=== PATIENT | female | born 2000 | race Caucasian/White ===

== ENCOUNTER → 2023-10-06 08:45 | Outpatient (REF) | payer BC, SELFPAY ==
[2023-10-06 10:07] LABS: % Basophils 0.7 % (0-2); % Eosinophils 2.8 % (0-6); % Immature Granulocytes 0.2 % (0-0.5); % Lymphocytes 42.9 % (20.5-51.1); % Monocytes 5.3 % (1.7-9.3); % Neutrophils 48.1 % (42.2-75.2); Absolute Basophils 0.1 10^3/uL (0-0.2); Absolute Eosinophils 0.3 10^3/uL (0-0.7); Absolute Lymphocytes 3.9 10^3/uL (1.2-3.4); Absolute Monocytes 0.5 10^3/uL (0.1-0.6); Absolute Neutrophils 4.4 10^3/uL (1.4-6.5); Hematocrit 40.2 % (37.0-47.0); Hemoglobin 13.9 g/dL (12.0-16.0); Mean Corp Hgb Conc. 34.6 g/dL (33.0-37.0); Mean Platelet Volume 9.5 fL (7.4-10.4); Nucleated Red Blood Cells % 0 %; Platelet Count 456 10^3/uL (130-400); Red Blood Cell Count 4.96 10^6/uL (4.20-5.40); Red Cell Dist. Width 12.2 % (11.5-14.5); White Blood Cell Count 9.2 10^3/uL (4.8-10.8)
[2023-10-06 10:26] LABS: Glycohemoglobin (HgbA1c) 5.4 % (4.0-5.6)
[2023-10-06 10:46] LABS: ALT (SGPT) 40 U/L (0-35); AST (SGOT) 31 U/L (14-36); Albumin 4.7 g/dl (3.5-5.0); Alkaline Phosphatase 45 U/L (38-126); Blood Urea Nitrogen 8 mg/dl (7-17); Calcium 10.2 mg/dl (8.4-10.2); Carbon Dioxide 23 mmol/L (22-30); Chloride 105 mmol/L (98-107); Glucose 88 mg/dl (70-99); HDL Cholesterol 58 mg/dl; LDL Cholesterol, Calculated 61 mg/dl; Potassium 4.9 mmol/L (3.5-5.1); Sodium 139 mmol/L (135-145); Total Bilirubin 0.4 mg/dl (0.2-1.3); Total Cholesterol 149 mg/dl (50-199); Total Protein 7.1 g/dl (6.3-8.2); Triglyceride 151 mg/dl (10-149); Very Low Density Lipoprotein 30 mg/dl (0-30); eGFR > 60.00
[2023-10-06 11:10] LABS: Vitamin D, 25-OH*** 42.1 ng/mL (30-80)
[2023-10-06 11:23] LABS: TSH Reflex To Free T4 2.51 uIU/ml (0.47-4.68)
[2023-10-06 11:41] LABS: Erythrocyte Sed Rate 10 mm/hour (0-20)
== END ==
LOC: REG 08:45
PROVIDERS: ATTENDING PHYSICIAN Registered Nurse Ambulatory Care
DX: L50.9 Urticaria, unspecified (principal); E66.1 Drug-induced obesity; Z68.41 Body mass index [BMI] 40.0-44.9, adult; F32.0 Major depressive disorder, single episode, mild; E55.9 Vitamin D deficiency, unspecified; E53.8 Deficiency of other specified B group vitamins; E66.01 Morbid (severe) obesity due to excess calories; F41.1 Generalized anxiety disorder; E28.2 Polycystic ovarian syndrome
CPT/HCPCS: 36415; 80053; 80061; 82306; 83036; 84443; 85025; 85652; 86140

== ENCOUNTER → 2023-10-12 08:02 | Outpatient (REF) | payer BC, SELFPAY ==
[2023-10-12 09:04] LABS: % Basophils 0.6 % (0-2); % Eosinophils 2.7 % (0-6); % Immature Granulocytes 0.3 % (0-0.5); % Lymphocytes 52.4 % (20.5-51.1); % Monocytes 5.4 % (1.7-9.3); % Neutrophils 38.6 % (42.2-75.2); Absolute Basophils 0.1 10^3/uL (0-0.2); Absolute Eosinophils 0.3 10^3/uL (0-0.7); Absolute Lymphocytes 4.9 10^3/uL (1.2-3.4); Absolute Monocytes 0.5 10^3/uL (0.1-0.6); Absolute Neutrophils 3.6 10^3/uL (1.4-6.5); Hematocrit 40.9 % (37.0-47.0); Hemoglobin 13.8 g/dL (12.0-16.0); Mean Corp Hgb Conc. 33.7 g/dL (33.0-37.0); Mean Corpuscular Hgb 28.4 pg (27.0-31.0); Mean Corpuscular Volume 84.2 fL (81.0-99.0); Mean Platelet Volume 9.4 fL (7.4-10.4); Nucleated Red Blood Cells % 0 %; Platelet Count 435 10^3/uL (130-400); Red Blood Cell Count 4.86 10^6/uL (4.20-5.40); Red Cell Dist. Width 12.2 % (11.5-14.5); White Blood Cell Count 9.3 10^3/uL (4.8-10.8)
== END ==
LOC: REG 08:02
PROVIDERS: ATTENDING PHYSICIAN Registered Nurse Ambulatory Care; FAMILY PHYSICIAN Internal Medicine
DX: D75.839 Thrombocytosis, unspecified (principal)
CPT/HCPCS: 36415; 85025

== ENCOUNTER → 2023-11-29 12:25 | Outpatient (REF) | payer BC, SELFPAY ==
[2023-11-29 12:56] LABS: % Basophils 0.6 % (0-2); % Eosinophils 1.5 % (0-6); % Immature Granulocytes 0.2 % (0-0.5); % Lymphocytes 33.5 % (20.5-51.1); % Monocytes 4.8 % (1.7-9.3); % Neutrophils 59.4 % (42.2-75.2); Absolute Basophils 0.1 10^3/uL (0-0.2); Absolute Eosinophils 0.2 10^3/uL (0-0.7); Absolute Lymphocytes 3.5 10^3/uL (1.2-3.4); Absolute Monocytes 0.5 10^3/uL (0.1-0.6); Absolute Neutrophils 6.3 10^3/uL (1.4-6.5); Hematocrit 40.4 % (37.0-47.0); Hemoglobin 13.9 g/dL (12.0-16.0); Mean Corp Hgb Conc. 34.4 g/dL (33.0-37.0); Mean Corpuscular Hgb 28.7 pg (27.0-31.0); Mean Corpuscular Volume 83.5 fL (81.0-99.0); Mean Platelet Volume 9.1 fL (7.4-10.4); Nucleated Red Blood Cells % 0 %; Platelet Count 444 10^3/uL (130-400); Red Blood Cell Count 4.84 10^6/uL (4.20-5.40); Red Cell Dist. Width 12.1 % (11.5-14.5); White Blood Cell Count 10.6 10^3/uL (4.8-10.8)
[2023-11-29 13:11] LABS: ALT (SGPT) 20 U/L (0-35); AST (SGOT) 21 U/L (14-36); Albumin 4.6 g/dl (3.5-5.0); Alkaline Phosphatase 43 U/L (38-126); Blood Urea Nitrogen 8 mg/dl (7-17); Calcium 10.1 mg/dl (8.4-10.2); Carbon Dioxide 24 mmol/L (22-30); Chloride 104 mmol/L (98-107); Glucose 86 mg/dl (70-99); Potassium 4.7 mmol/L (3.5-5.1); Sodium 137 mmol/L (135-145); Total Bilirubin 0.6 mg/dl (0.2-1.3); Total Protein 6.9 g/dl (6.3-8.2); eGFR > 60.00
== END ==
LOC: REG 12:25
PROVIDERS: ATTENDING PHYSICIAN Internal Medicine
DX: R10.11 Right upper quadrant pain (principal); R11.2 Nausea with vomiting, unspecified
CPT/HCPCS: 36415; 80053; 85025

== ENCOUNTER → 2023-11-30 09:41 | Outpatient (REF) | payer BC, SELFPAY | LOC: RAD 09:41 | PROVIDERS: ATTENDING PHYSICIAN Internal Medicine | DX: R10.11 Right upper quadrant pain (principal); R11.2 Nausea with vomiting, unspecified | CPT/HCPCS: 76700; 87086 ==

== ENCOUNTER → 2024-01-02 13:11 | Outpatient (REF) | payer BC, SELFPAY ==
[2024-01-02 13:52] LABS: % Basophils 0.6 % (0-2); % Eosinophils 2.7 % (0-6); % Immature Granulocytes 0.2 % (0-0.5); % Lymphocytes 45.9 % (20.5-51.1); % Monocytes 4.9 % (1.7-9.3); % Neutrophils 45.7 % (42.2-75.2); Absolute Basophils 0.1 10^3/uL (0-0.2); Absolute Eosinophils 0.2 10^3/uL (0-0.7); Absolute Lymphocytes 4.1 10^3/uL (1.2-3.4); Absolute Monocytes 0.4 10^3/uL (0.1-0.6); Absolute Neutrophils 4.1 10^3/uL (1.4-6.5); Hematocrit 38.5 % (37.0-47.0); Hemoglobin 13.3 g/dL (12.0-16.0); Mean Corp Hgb Conc. 34.5 g/dL (33.0-37.0); Mean Corpuscular Hgb 27.7 pg (27.0-31.0); Mean Corpuscular Volume 80.2 fL (81.0-99.0); Mean Platelet Volume 9.2 fL (7.4-10.4); Nucleated Red Blood Cells % 0 %; Platelet Count 405 10^3/uL (130-400)
[2024-01-02 13:57] LABS: Erythrocyte Sed Rate 12 mm/hour (0-20)
[2024-01-02 14:25] LABS: ALT (SGPT) 36 U/L (0-35); AST (SGOT) 30 U/L (14-36); Albumin 4.7 g/dl (3.5-5.0); Alkaline Phosphatase 44 U/L (38-126); Blood Urea Nitrogen 6 mg/dl (7-17); Carbon Dioxide 22 mmol/L (22-30); Chloride 105 mmol/L (98-107); Glucose 86 mg/dl (70-99); Potassium 4.4 mmol/L (3.5-5.1); Sodium 143 mmol/L (135-145); Total Bilirubin 0.4 mg/dl (0.2-1.3); Total Protein 7.1 g/dl (6.3-8.2); eGFR > 60.00
[2024-01-02 15:02] LABS: TSH Reflex To Free T4 2.05 uIU/ml (0.47-4.68)
[2024-01-02 16:22] LABS: Complement C3 154 mg/dl (88-165); IgA 96 mg/dl (70-400)
[2024-01-04 11:30] LABS: tTG IgA Antibody 3.1 EU/ml (0-19); tTG IgG Antibody 7.1 EU/ml (0-19)
[2024-01-05 01:08] LABS: Complement Act., Total (CH50) 62.5 U/mL (38.7-89.9)
== END ==
LOC: REG 13:11
PROVIDERS: ATTENDING PHYSICIAN Internal Medicine; FAMILY PHYSICIAN Internal Medicine
DX: L50.1 Idiopathic urticaria (principal); L50.0 Allergic urticaria; R10.9 Unspecified abdominal pain; T78.1XXA Other adverse food reactions, not elsewhere classified, initial encounter
CPT/HCPCS: 36415; 80053; 82784; 83516; 84443; 85025; 85652; 86003; 86140; 86160; 86162; 86231

== ENCOUNTER → 2024-02-17 14:57 | Outpatient (REF) | payer BC, SELFPAY | LOC: CPAP 14:57 | PROVIDERS: ATTENDING PHYSICIAN Nurse Practitioner Adult Health | DX: Z01.419 Encounter for gynecological examination (general) (routine) without abnormal findings (principal) | CPT/HCPCS: G0123 ==

== ENCOUNTER → 2024-03-02 12:05 | Outpatient (REF) | payer BC, SELFPAY ==
[2024-03-05 08:30] LABS: ANA, IgG Reflex to HEp-2 None Detected (None Detected)
== END ==
LOC: REG 12:05
PROVIDERS: ATTENDING PHYSICIAN Physician Assistant Medical; FAMILY PHYSICIAN Internal Medicine
DX: L50.1 Idiopathic urticaria (principal); L50.8 Other urticaria; L50.9 Urticaria, unspecified; L29.9 Pruritus, unspecified
CPT/HCPCS: 36415; 83516; 83521; 84155; 84156; 84165; 86038; 86335

== ENCOUNTER → 2024-04-26 11:38 | Outpatient (REF) | payer BC, SELFPAY ==
[2024-04-26 12:35] LABS: % Basophils 0.9 % (0-2); % Eosinophils 2.3 % (0-6); % Immature Granulocytes 0.3 % (0-0.5); % Lymphocytes 46.8 % (20.5-51.1); % Monocytes 4.8 % (1.7-9.3); % Neutrophils 44.9 % (42.2-75.2); Absolute Basophils 0.1 10^3/uL (0-0.2); Absolute Eosinophils 0.2 10^3/uL (0-0.7); Absolute Lymphocytes 3.7 10^3/uL (1.2-3.4); Absolute Monocytes 0.4 10^3/uL (0.1-0.6); Absolute Neutrophils 3.6 10^3/uL (1.4-6.5); Hematocrit 40.9 % (37.0-47.0); Hemoglobin 13.5 g/dL (12.0-16.0); Mean Corpuscular Hgb 27.6 pg (27.0-31.0); Mean Corpuscular Volume 83.6 fL (81.0-99.0); Mean Platelet Volume 9.2 fL (7.4-10.4); Nucleated Red Blood Cells % 0 %; Platelet Count 392 10^3/uL (130-400); Red Blood Cell Count 4.89 10^6/uL (4.20-5.40); White Blood Cell Count 7.9 10^3/uL (4.8-10.8)
[2024-04-26 14:26] LABS: ALT (SGPT) 12 U/L (0-35); AST (SGOT) 18 U/L (14-36); Albumin 4.5 g/dl (3.5-5.0); Alkaline Phosphatase 42 U/L (38-126); Blood Urea Nitrogen 11 mg/dl (7-17); Carbon Dioxide 24 mmol/L (22-30); Chloride 103 mmol/L (98-107); Glucose 89 mg/dl (70-99); Potassium 4.8 mmol/L (3.5-5.1); Sodium 138 mmol/L (135-145); TSH Reflex To Free T4 2.12 uIU/ml (0.47-4.68); Total Bilirubin 0.5 mg/dl (0.2-1.3); Total Protein 6.9 g/dl (6.3-8.2); eGFR > 60.00
== END ==
LOC: REG 11:38
PROVIDERS: ATTENDING PHYSICIAN Internal Medicine
DX: E66.01 Morbid (severe) obesity due to excess calories (principal); Z68.38 Body mass index [BMI] 38.0-38.9, adult; E66.812 Obesity, class 2; F41.1 Generalized anxiety disorder; E28.2 Polycystic ovarian syndrome; R79.89 Other specified abnormal findings of blood chemistry
CPT/HCPCS: 36415; 80053; 83036; 84443; 85025

== ENCOUNTER → 2024-08-20 11:15 | Outpatient (REF) | payer BC, SELFPAY ==
[2024-08-20 13:34] LABS: % Basophils 0.6 % (0-2); % Eosinophils 2.8 % (0-6); % Immature Granulocytes 0.2 % (0-0.5); % Lymphocytes 42.1 % (20.5-51.1); % Monocytes 3.7 % (1.7-9.3); % Neutrophils 50.6 % (42.2-75.2); Absolute Basophils 0.1 10^3/uL (0-0.2); Absolute Eosinophils 0.2 10^3/uL (0-0.7); Absolute Lymphocytes 3.4 10^3/uL (1.2-3.4); Absolute Monocytes 0.3 10^3/uL (0.1-0.6); Absolute Neutrophils 4.1 10^3/uL (1.4-6.5); Hematocrit 39.2 % (37.0-47.0); Hemoglobin 13.2 g/dL (12.0-16.0); Mean Corp Hgb Conc. 33.7 g/dL (33.0-37.0); Mean Corpuscular Volume 83.1 fL (81.0-99.0); Mean Platelet Volume 9.8 fL (7.4-10.4); Nucleated Red Blood Cells % 0 %; Platelet Count 395 10^3/uL (130-400); Red Blood Cell Count 4.72 10^6/uL (4.20-5.40); White Blood Cell Count 8.2 10^3/uL (4.8-10.8)
[2024-08-20 14:52] LABS: Free T4 1.42 ng/dl (0.78-2.19); Vitamin D, 25-OH*** 31.6 ng/mL (30-80)
[2024-08-20 15:05] LABS: TSH 1.38 uIU/ml (0.47-4.68)
[2024-08-20 15:20] LABS: Iron 73 ug/dl (37-170)
[2024-08-20 15:29] LABS: Percent Saturation 19 % (20-50); Total Iron Binding Capacity 369 ug/dl (265-497)
[2024-08-20 15:41] LABS: Folate 9.4 ng/ml (2.76-20); Vitamin B12 206 pg/ml (239-931)
[2024-08-23 03:57] LABS: DHEA Sulfate 549 ug/dL (148-407)
[2024-08-23 04:18] LABS: Vitamin D 1,25 Dihydroxy 41.5 pg/mL (19.9-79.3)
[2024-08-23 06:32] LABS: Zinc 87.6 ug/dL (60.0-120.0)
== END ==
LOC: REG 11:15
PROVIDERS: ATTENDING PHYSICIAN Physician Assistant Medical; FAMILY PHYSICIAN Internal Medicine
DX: L65.0 Telogen effluvium (principal)
CPT/HCPCS: 36415; 82157; 82306; 82607; 82627; 82652; 82728; 82746; 83540; 83550; 84270; 84402; 84403; 84439; 84443; 84630; 85025; 86038

== ENCOUNTER 2025-02-10 09:18 | Emergency (ER) | payer BC, SELFPAY ==
[2025-02-10 09:32] VITALS: BP 119/75
--- NOTE | 2025-02-10 10:53 | ED.GENMED ---
History of Present Illness
General
Chief Complaint: Abdominal Pain
Source: patient
Exam Limitations: none
Time Seen by Provider: 02/10/25 10:33
Nursing documentation reviewed up to this point in time: agreed with
History of Present Illness
History of Present Illness:
Patient is a 24-year-old female with history of PCOS who presents to the emergency department for evaluation of left-sided abdominal pain associated with vomiting. She states symptoms started Tuesday morning with pain in her left mid/upper abdomen.
She describes occasional radiation of pain into her pelvis (both the right and left side). Vomiting began on Tuesday night and she describes intermittent episodes over the past few days. She has had little oral intake.
She denies any fever, dysuria, diarrhea, or constipation. She started her menstrual cycle yesterday.
Patient does report a past history of kidney stones however this pain feels different.
No known sick contacts.
Past History
Past History
ED Past Medical History: Other (Kidney stone)
ED Past Surgical History: None
Social History
Tobacco: Non-smoker
Alcohol: None
Drug: None
Personal: Single
Living: with family
Employment: Employed
Review of Systems
Review of Systems
Allergies reviewed?: Yes
All Other Systems: ROS reviewed and negative except as documented in HPI and ROS
Phy Exam
Physical Exam
Physical Exam:
Vitals: Mildly tachycardic on arrival, improved by my assessment. Afebrile
General: Patient appears in no distress
Skin: Warm and dry, no rashes or lesions
Head: Normocephalic, atraumatic
Eyes: Sclera nonicteric. E
Throat: Protecting airway
Neck: Normal ROM, no cervical spine tenderness, no meningismus
Cardiac: Regular rate and rhythm, no murmurs.
Pulm: Normal respiratory effort. Lungs clear
Abdomen: Abdomen soft. Moderate tenderness in right mid abdomen. No rebound tenderness or guarding. Mild tenderness in lower pelvic region.
Extremities: No evidence of cyanosis or edema
Neuro: AAOx3. Grossly intact.
Psychiatric: Normal affect.
Course
Orders/Labs/Results
Orders:
Orders
02/10/25
US Pelvis Only (non-obstetric) Urgent
Reason For Exam: pelvic pain, vomiting
02/10/25 10:51
0.9% Sodium Chloride 1000 ml [Nss] 1,000 ml IV BOLUS
Ketorolac [Toradol] 15 mg IV NOW STA
Ondansetron Injectable [Zofran] 4 mg IV NOW STA
Test Result ONCE
Renal Only US [US Renal Only W/O Bladder] Urgent
Comment: hx kidney stones
Reason For Exam: Left sided abdominal pain
02/10/25 11:32
Complete Blood Count/With Diff Urgent
Comprehensive Metabolic Panel Urgent
HCG, Serum Qualitative Screen Urgent
Lipase Urgent
Urinalysis Reflex To Culture Urgent
Date Specimen was Collected: 02/10/25
Time Specimen was Collected: 11:01
Urine Microscopic Reflex Cult Urgent
Urine Culture Urgent
TOMMIE Source: U
Specimen Description:
Date Specimen was Collected: 02/10/25
Time Specimen was Collected: 11:01
02/10/25 13:37
CT Abd/pelvis W Iv Cont Urgent
Comment:
Reason For Exam: left sided abdominal pain, +N/V
02/10/25 15:15
Amoxicillin 875 mg/Clav 125 mg [Augmentin 875 mg/125 mg] 1 tablet PO NOW STA
Abnormal Lab Results
02/10/25
11:32
WBC 15.4 H 10^3/uL
(4.8-10.8)
Absolute Neuts (auto) 11.3 H 10^3/uL
(1.4-6.5)
Absolute Monos (auto) 0.9 H 10^3/uL
(0.1-0.6)
Lymphocytes % 20.1 L %
(20.5-51.1)
BUN 6 L mg/dl
(7-17)
Creatinine 0.5 L mg/dL
(0.6-1.0)
Alkaline Phosphatase 35 L U/L
(38-126)
Urine Ketones 3+ A
(Negative)
Ur Occult Blood Reflex 4+ A
(Negative)
Leukocyte Esterase Rfl 1+ A
(Negative)
Urine RBC >100 A /HPF
(0-2)
Urine Albumin (Reflex) 2+ A
(Neg - Trace)
02/10/25 11:32
02/10/25 11:32
Vital Signs
Initial and Last Documented VS:
Initial Vital Signs
Temp Pulse Resp BP Pulse Ox
98.5 F 111 18 119/75 99
02/10/25 09:32 02/10/25 09:32 02/10/25 09:32 02/10/25 09:32 02/10/25 09:32
Last Documented Vital Signs
Temp Pulse Resp BP Pulse Ox
97.9 F 78 16 112/74 97
02/10/25 15:50 02/10/25 15:50 02/10/25 15:50 02/10/25 15:50 02/10/25 15:50
MDM/Problems Addressed
Differential Diagnosis Includes:
Not limited to: viral gastroenteritis, colitis, constipation, cystitis, pyelonephritis, renal colic, ovarian cyst, etc
MDM/Problems Addressed:
24-year-old female with two days of left sided abdominal pain associated with nausea and vomiting. No fevers or urinary symptoms. She is currently on her menstrual cycle. Patient was somewhat tachycardic on arrival however this improved prior to my
assessment. She is afebrile and appears well. Abdomen is soft with tenderness in left mid/left upper abdomen. No rebound tenderness or guarding. She also has some mild discomfort in the pelvic region bilaterally. No focal tenderness at McBurney�s
point. No CVA tenderness.
Symptoms somewhat vague. Considered viral gastroenteritis or colitis. Possibly UTI, pyelonephritis, or renal colic. Also considered ovarian etiology.
Will check basic labs, send UA. Will start with pelvic and renal ultrasound, treat symptoms and reassess.
Update: Labs significant for leukocytosis. Chemistry unremarkable. Urine with many RBCs consistent with menstrual cycle. No clear evidence of infection.
Patient apparently did not tolerate transvaginal ultrasound and equested to stop.
Renal ultrasound unremarkable and possible cyst on right ovary noted however exam was not completed. Will proceed with CT scan for further evaluation.
CT scan reveals findings of acute diverticulitis of distal descending colon. This would correlate with area of patients pain. No complicating factor noted on imaging. Patient�s pain is well controlled. She is afebrile with stable vital signs.
Feel stable for discharge home on oral antibiotics. Prescription sent to pharmacy. Discussed clear liquid diet, pain management at home and close return precautions. Did advise outpatient G.I. f/u for a colonoscopy once acute flare resolves. Patient
and patient�s mom comfortable with plan and expressed verbal understanding.
Chronic conditions affecting care:
PCOS
Acute Exacerbation and/or Progression of Chronic Illness:
N/A
*Radiology
Radiology exam reviewed: radiology read reviewed
*Pulse Oximetry
SaO2: 99
Oxygen Mode of Delivery: Room air
Patient hypoxic: no
*EKG
Interpreted by ED Provider?: NA
*Music Historian Interpretation
Rate: Music Historian- N/A
*Critical Care Note
Total Time (30-74mins, 75-104mins- exclusive of procedures): Not Applicable
ED Attending Note
-
Portions of this chart may have been created with voice recognition software.� Occasional wrong word or��sound alike� substitutions may have occurred due to the inherent limitations of voice recognition software.
Discharge Plan
Departure
Patient Disposition: Home (Routine Discharge)
Date of Disposition: 11/02/25
Time of Disposition: 15:15
Patient with high blood pressure during this ER visit?: No
Condition: Good
Discharge Problem:
Acute diverticulitis
Instructions: Clear Liquid Diet, Diverticulitis (DC)
Prescriptions:
New
amoxicillin-pot clavulanate 875-125 mg tablet
1 tab PO BID 10 Days Qty: 20 0RF
ondansetron 4 mg tablet,disintegrating
4 mg PO Q8H PRN (Reason: nausea and vomiting) Qty: 7 0RF
No Action
ketorolac 10 MG tablet
10 mg PO Q6HPRN PRN (Reason: pain) Qty: 12 0RF
ondansetron 4 MG tablet,disintegrating
4 mg PO QIDPRN PRN (Reason: NAUSEA) Qty: 12 0RF
ondansetron 4 MG tablet,disintegrating
4 mg PO TIDPRN PRN (Reason: nausea/vomiting) 3 Days Qty: 7 0RF
ibuprofen 800 MG tablet
800 mg PO Q8HPRN PRN (Reason: pain) Qty: 20 0RF
hydrocodone-acetaminophen 1 TABLET tablet
1 tab PO Q6HPRN PRN (Reason: pain) 2 Days Qty: 4 0RF
tamsulosin 0.4 MG capsule
0.4 mg PO DAILY 10 Days Qty: 10 0RF
Referrals:
Braydon Lowe MD [Active, Gastroenterology] - Call in 1-3 days for appt
Akiko Linares NP [Family Provider, Internal Medicine]
Activity Restrictions/Additional Instructions:
RETURN TO THE EMERGENCY DEPARTMENT WITH ANY FEVER, CHILLS, PERSISTENT/WORSENING ABDOMINAL PAIN, INTRACTABLE NAUSEA/VOMITING, WORSENING IN CURRENT SYMPTOMS, OR ANY OTHER CONCERNS
- As discussed, your CT scan showed acute diverticulitis of your descending colon. This is likely the cause of your symptoms today. You were also found to have 2 small ovarian cyst.
- A prescription for antibiotics have been sent to your pharmacy. Please take twice a day for the next 10 days. You can take Tylenol and/or Motrin as needed for pain.
- Stay well-hydrated. I would recommend a clear liquid diet over the next few days and slowly advance to low fiber as tolerated.
- Follow-up with primary care for further evaluation/management to ensure that your symptoms are improving. I have also provided the name for a GI doctor for you to follow-up with once the symptoms improved as you may require a colonoscopy.
Monitor your symptoms closely and return to the emergency department with any acute worsening/new symptoms or any signs of worsening infection
Interventions
Interventions:
*Risk Screen - Suicide Last Done: 02/10/25 09:32
*General Assessment Last Done: 02/10/25 10:29
*Neglect/Abuse Screening Last Done: 02/10/25 09:32
*ED- Fall Risk Assessment Last Done: 02/10/25 10:29
*Nursing Disposition Last Done: 02/10/25 15:50
TB-Pbidcc-Oxowzlejvi Assessment Last Done: 02/10/25 10:29
Discharge Date and Time
Discharge Date/Time: 02/10/25 15:50
Print Language: NEPALI
[2025-02-10 11:48] LABS: Hematocrit 37.6 % (37.0-47.0); Hemoglobin 12.9 g/dL (12.0-16.0); Mean Corp Hgb Conc. 34.3 g/dL (33.0-37.0); Mean Corpuscular Volume 84.9 fL (81.0-99.0); Nucleated Red Blood Cells % 0 %; Platelet Count 381 10^3/uL (130-400); Red Cell Dist. Width 11.9 % (11.5-14.5)
[2025-02-10 12:00] LABS: HCG, Serum Qualitative Screen Negative
[2025-02-10] MEDS: NSS 1000 IV (12:03)
[2025-02-10] MEDS: ZOFRAN 4 MG IV (12:03)
[2025-02-10] MEDS: TORADOL 15 MG IV (12:03)
[2025-02-10 12:04] LABS: Urine Character Slightly Cloudy (Clear)
[2025-02-10 12:05] LABS: ALT (SGPT) 10 U/L (0-35); AST (SGOT) 14 U/L (14-36); Albumin 4.3 g/dl (3.5-5.0); Alkaline Phosphatase 35 U/L (38-126); Blood Urea Nitrogen 6 mg/dl (7-17); Calcium 9.4 mg/dl (8.4-10.2); Carbon Dioxide 22 mmol/L (22-30); Chloride 106 mmol/L (98-107); Glucose 83 mg/dl (70-99); Lipase 71 U/L (23-300); Potassium 4.2 mmol/L (3.5-5.1); Sodium 138 mmol/L (135-145); Total Protein 6.8 g/dl (6.3-8.2); eGFR > 60.00
[2025-02-10 13:13] LABS: Urine Red Blood Cell >100 /HPF (0-2)
[2025-02-10 15:50] VITALS: BP 112/74
[2025-02-10] MEDS: AUGMENTIN 875 MG/125 MG 1 TABLET PO (15:59)
== END 2025-02-10 15:50 | disposition home or self-care (01) ==
LOC: EMR 09:18
PROVIDERS: Physician Assistant; EMERGENCY PHYSICIAN Student in an Organized Health Care Education/Training Program; FAMILY PHYSICIAN Internal Medicine
DX: K57.32 Diverticulitis of large intestine without perforation or abscess without bleeding (principal); E28.2 Polycystic ovarian syndrome
CPT/HCPCS: 99284; 96374; 96375; 96361; 74177; 76775; 76856; 80053; 81003; 81015; 83690; 84703; 85025; 87086; Q9967